=== PATIENT | female | born 1980 | race Caucasian/White ===

== ENCOUNTER → 2017-10-04 | Outpatient (CLI) | payer OTHER ==
[~2017-10-04] MED LIST: ACHD5005 PO; BIRTH CONTROL; CIPR-225 PO; CPR500T PO; DOCU-143 PO; LIRA0.6P SQ; LISI1TAB6 PO; MECL25TA3 PO; METF-380 PO; METR500T PO; NORG1TAB7 PO; ONDA4TAB11 PO; ONDA4TAB8 SL
--- NOTE | 2017-10-04 12:57 | Diagnostic Imaging Report ---
INDICATION: Medial left calf pain. TECHNIQUE: Grayscale with color-flow and Doppler waveform evaluation of the left lower extremity deep venous system. CORRELATION STUDY: None FINDINGS: Color and grayscale sonographic images demonstrate no intraluminal defect within the visualized portion of the common femoral, superficial femoral and/or popliteal veins to suggest thrombus formation. These vessels demonstrate normal response to compression and augmentation. Superficial varicosities in the medial aspect of the calf appearing unremarkable. No soft tissue fluid collection. IMPRESSION: 1. Negative for deep venous thrombosis of the left leg. Dictated by: Dictated on workstation # [id number]
== END ==
LOC: RAD 12:07
PROVIDERS: ATTEND Nurse Practitioner Family
DX: I83.892 Varicose veins of left lower extremity with other complications (principal)